=== PATIENT | male | born 1995 | race Hispanic/Latino ===

== ENCOUNTER 2023-11-15 07:05 | Day surgery (SDC) | payer OTHER, SELFPAY ==
[2023-11-15] MEDS ORDERED: Ringers Lactate 1,000 ML IV ONE ×2 (07:25→12:12)
[2023-11-15] MEDS ORDERED: CLINDAMYCIN 900MG/D5W 900 MG/50 ML IVPB IV ONE (07:40)
[2023-11-15] MEDS ORDERED: ONDANSETRON 4 MG/2 ML VIAL ONE (08:32)
[2023-11-15] MEDS ORDERED: LIDOCAINE 1% MPF 5 ML VIAL ONE (08:32)
[2023-11-15] MEDS ORDERED: KETOROLAC 30 MG/ML INJ ONE (08:32)
[2023-11-15] MEDS ORDERED: dexAMETHasone 10 MG/ML VIAL ONE (08:32)
[2023-11-15] MEDS ORDERED: ROCURONIUM 50 MG/5 ML VIAL IV ONE (08:32)
[2023-11-15] MEDS ORDERED: MIDAZOLAM HCL 2 MG/2 ML INJ ONE (08:33)
[2023-11-15] MEDS ORDERED: propofoL 200 MG/20 ML VIAL IV ONE (08:33)
[2023-11-15] MEDS ORDERED: FENTANYL CITR 100 MCG/2 ML ONE (08:33)
[2023-11-15] MEDS ORDERED: LIDOCAINE HCL/EPINEPHRINE 20 ML MDV ONE (08:59)
[2023-11-15] MEDS ORDERED: EPINEPHrine 1 MG/10 ML SYR ONE (10:40)
[2023-11-15] MEDS ORDERED: EPHEDRINE SULF 50 MG/ML VIAL ONE (10:41)
[2023-11-15] MEDS ORDERED: MORPHINE 10 MG/ML VIAL ONE (11:51)
[2023-11-15] MEDS ORDERED: Mastisol Adhesive Liq ONE (11:54)
[2023-11-15 12:28] VITALS: O2SAT 100
[2023-11-15 13:53] VITALS: BP 121/76; TEMP 97.2
--- NOTE | 2023-11-16 12:27 | OP ---
Date of Procedure: 11/15/2023 Surgeon: TREVA FONSECA Primary Care Physician: Unknown. Preoperative Diagnosis: Neoplasm, uncertain behavior, right submandibular gland. Postoperative Diagnosis: Neoplasm, uncertain behavior, right submandibular gland. Procedure: Right submandibular gland excision. Anesthesia: General endotracheal anesthesia was administered. I also infiltrated approximately 10 mL at the incision site. Estimated Blood Loss: Less than 5 mL. Specimens: Right submandibular gland was removed completely and sent to pathology for evaluation. 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 Complications: None. Disposition: Stable. The patient tolerated the procedure well. Indication For Procedure: The patient is a pleasant 28-year-old male, who presented to my outpatient clinic with an enlarged right submandibular gland. My concern was for benign or malignant neoplasm. Thus, these were indications to bring the patient to operative suite for the above-mentioned procedure. 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 He understood, all questions were answered. Risks versus benefits, complications were explained in detail and a consent form signed which was placed in the chart. Description Of Procedure: The patient was transferred from the preoperative holding area to the operative suite by Department of Anesthesia and placed on the operating table supine, sedated and intubated in normal fashion. I infiltrated approximately 10 mL of 1% lidocaine with 1:100,000 epinephrine at the incision site and the patient was sterilely prepped and draped. An incision was made approximately 2 cm below the mandible with a #15 blade scalpel through the epidermis down to the subplatysmal level. I utilized monopolar electrocautery on a setting of 20 for coagulation to continue dissection down to the inferior border of the gland. Once this was reached, I switched to the LigaSure to finally dissect around the gland. Facial vein was clamped, cut, and ligated with the appropriate instruments and this was found at the lateral inferior border of the gland. Dissection continued until the specimen was completely removed. Liset's duct was clamped, cut, and ligated and then the lingual nerve was visualized medially. The gland was completely removed and was submitted to pathology for frozen section analysis, which revealed most likely pleomorphic adenoma, permanent section results forthcoming. The entire cavity was examined for enlarged lymph nodes and none were found. The wound defect was irrigated with sterile water and then a Valsalva was performed. Hemostasis was achieved with bipolar cautery. Platysma was then reapproximated with 3-0 Vicryl sutures in a running fashion followed by subcutaneous and dermal closure with 4-0 Monocryl on a PS2 needle in simple interrupted fashion. The epidermal layer was reapproximated with 4-0 Monocryl in a subcuticular fashion around a Key drain and then a compressive dressing was placed. The patient tolerated the procedure well, will be discharged home on antibiotic and analgesic medication, and will follow up in 3 days for drain removal. He was transferred to PACU with the Department of Anesthesia and subsequently discharged home in stable condition. SADE/TAMERA Voice ID: [id number] Report ID: [id number]
== END 2023-11-15 13:15 | disposition home or self-care (01) ==
LOC: OR 07:05
PROVIDERS: ATTEND Otolaryngology Facial Plastic Surgery
PROC: 0CBG0ZZ Excision of Right Submaxillary Gland, Open Approach (ICD-10-PCS; principal; 2023-11-15 09:00)
DX: D11.7 Benign neoplasm of other major salivary glands (principal)
CPT/HCPCS: 42405; 88331; 88332; 88305; 88307; J2704; J2001; J2250; J3010; J1100; J2405; J7120 ×2; 88304; J0171